=== PATIENT | male | born 1990 | race Caucasian/White ===

== ENCOUNTER 2021-10-08 19:26 | Emergency (ER) | payer BC ==
--- NOTE | 2021-10-08 21:14 | RAD REPORT ---
EXAM DESCRIPTION: RAD - Chest Single View - 10/08/2021 9:05 pm CLINICAL HISTORY: CHEST PAIN Chest pain. COMPARISON: No comparisons FINDINGS: Portable technique limits examination quality. The lungs are grossly clear. The heart is normal in size. No displaced fractures. IMPRESSION: No acute intrathoracic process suspected.
[2021-10-08] MEDS ORDERED: ASPIRIN 81 MG CHEWABLE TABLET ONE (21:55)
[2021-10-08 22:41] LABS: Absolute Lymphocytes (CBC) 2.6 K/uL (0.7-4.9); Hematocrit 44.7 % (39.6-49.0); Lymphocytes % 26.5 % (15.3-44.8); MPV 8.4 fL (7.6-11.3); RBC Red Blood Cell Count 5.16 M/uL (4.33-5.43)
[2021-10-08 22:54] LABS: BUN Blood Urea Nitrogen 7 mg/dL (7-18); Bicarbonate 27 mmol/L (21-32); Glucose Level 113 mg/dL (74-106); Sodium Level 137 mmol/L (136-145); Troponin High Sensitivity 4.9 pg/mL (<58.9)
--- NOTE | 2021-10-08 23:26 | EDPHYS ---
Physician Documentation [facility] Name: Moose Kessler Age: 31 yrs Sex: Male : 1990 Arrival Date: 10/08/2021 Time: 19:31 Bed 5 Private MD: ED Physician Aaron Muniz HPI: 10/08 20:48 This 31 yrs old Male presents to ER via Ambulatory with complaints of CHEST DISCOMFOR, jr8 LIGHT HEADED. 20:48 The patient or guardian reports chest pain that is located primarily in the anterior jr8 chest wall, left. The pain does not radiate. Associated signs and symptoms: Pertinent positives: dizziness. The chest pain is described as a pressure. Duration: The patient or guardian reports multiple episodes, that are intermittent. Modifying factors: The symptoms are alleviated by nothing. the symptoms are aggravated by nothing. Severity of pain: At its worst the pain was mild in the emergency department the pain is unchanged. The patient has not experienced similar symptoms in the past. The patient has not recently seen a physician. Stated that the pain stated about 4 days ago but persists. Has not worsened . Historical: - Allergies: 20:24 No Known Allergies; al4 - Immunization history:: Adult Immunizations up to date, Client reports receiving the 2nd dose of the Covid vaccine, pfizer Flu vaccine is not up to date. - Social history:: Smoking status: Patient denies any tobacco usage or history of. ROS: 20:48 Eyes: Negative for injury, pain, redness, and discharge, ENT: Negative for injury, jr8 pain, and discharge, Neck: Negative for injury, pain, and swelling, Respiratory: Negative for shortness of breath, cough, wheezing, and pleuritic chest pain, Abdomen/GI: Negative for abdominal pain, nausea, vomiting, diarrhea, and constipation, Back: Negative for injury and pain, MS/Extremity: Negative for injury and deformity, Skin: Negative for injury, rash, and discoloration. 20:48 Cardiovascular: Positive for chest pain, Negative for edema, orthopnea, palpitations, paroxysmal nocturnal dyspnea. 20:48 Neuro: Positive for dizziness. Exam: 20:48 Constitutional: This is a well developed, well nourished patient who is awake, alert, jr8 and in no acute distress. Neck: Trachea midline, no thyromegaly or masses palpated, and no cervical lymphadenopathy. Supple, full range of motion without nuchal rigidity, or vertebral point tenderness. No Meningismus. Chest/axilla: Normal chest wall appearance and motion. Nontender with no deformity. No lesions are appreciated. Cardiovascular: Regular rate and rhythm with a normal S1 and S2. No gallops, murmurs, or rubs. Normal PMI, no JVD. No pulse deficits. Respiratory: Lungs have equal breath sounds bilaterally, clear to auscultation and percussion. No rales, rhonchi or wheezes noted. No increased work of breathing, no retractions or nasal flaring. Abdomen/GI: Soft, non-tender, with normal bowel sounds. No distension or tympany. No guarding or rebound. No evidence of tenderness throughout. Back: No spinal tenderness. No costovertebral tenderness. Full range of motion. Skin: Warm, dry with normal turgor. Normal color with no rashes, no lesions, and no evidence of cellulitis. MS/ Extremity: Pulses equal, no cyanosis. Neurovascular intact. Full, normal range of motion. Neuro: Awake and alert, GCS 15, oriented to person, place, time, and situation. Cranial nerves II-XII grossly intact. Motor strength 5/5 in all extremities. Sensory grossly intact. Vital Signs: 20:22 BP 138 / 85; Pulse 76; Resp 18; Temp 98.4; Pulse Ox 98% on R/A; Weight 99.79 kg; Height al4 5 ft. 8 in. (172.72 cm); Pain 0/10; 21:00 BP 127 / 97; Pulse 78; Resp 18 S; Pulse Ox 98% on R/A; al4 22:15 BP 126 / 84; Pulse 74; Resp 20 S; Pulse Ox 98% on R/A; al4 23:15 BP 127 / 86; Pulse 68; Resp 18; Pulse Ox 98% ; al4 20:22 Body Mass Index 33.45 (99.79 kg, 172.72 cm) al4 MDM: 20:16 Patient medically screened. augustin 23:25 Data reviewed: vital signs, nurses notes, lab test result(s), EKG, radiologic studies, jr8 plain films. Data interpreted: Pulse oximetry: on room air is 98 %. Interpretation: normal. Counseling: I had a detailed discussion with the patient and/or guardian regarding: the historical points, exam findings, and any diagnostic results supporting the discharge/admit diagnosis, lab results, radiology results, the need for outpatient follow up, a family practitioner, to return to the emergency department if symptoms worsen or persist or if there are any questions or concerns that arise at home. ED course: Patient chest pain-free and hemodynamically stable at this point. No acute findings on EKG, labs, or imaging. Recommended follow-up with primary care. If you worsen or have a change in symptoms come back for further evaluation. Patient good with this at this time will follow up.. 10/08 20:33 Order name: Basic Metabolic Panel; Complete Time: 23:25 [facility] 10/08 20:33 Order name: CBC with Diff; Complete Time: 22:45 [facility] 10/08 20:33 Order name: Troponin HS; Complete Time: 23:25 [facility] 10/08 20:33 Order name: XRAY Chest (1 view); Complete Time: 21:33 [facility] 10/08 20:33 Order name: EKG; Complete Time: 20:34 10/08 20:33 Order name: Cardiac monitoring; Complete Time: 22:18 10/08 20:33 Order name: EKG - Nurse/Tech; Complete Time: 22:18 [facility] 10/08 20:33 Order name: IV Saline Lock; Complete Time: 22:18 10/08 20:33 Order name: Labs collected and sent; Complete Time: 22:18 10/08 20:33 Order name: O2 Per Protocol; Complete Time: 22:18 [facility] 10/08 20:33 Order name: O2 Sat Monitoring; Complete Time: 22:18 Administered Medications: 22:00 Drug: Aspirin Chewable Tablet 324 mg Route: PO; al4 23:00 Follow up: Response: No adverse reaction al4 Disposition Summary: 10/08/21 23:26 Discharge Ordered Location: Home [facility] Problem: new jr8 Symptoms: have improved jr8 Condition: Stable jr8 Diagnosis - Chest pain, unspecified jr8 Followup: jr8 - With: Private Physician - When: 5 - 6 days - Reason: Recheck today's complaints, Continuance of care, Re-evaluation by your physician Discharge Instructions: - Discharge Summary Sheet jr8 - Nonspecific Chest Pain, Adult jr8 Forms: - Medication Reconciliation Form jr8 - Thank You Letter jr8 - Antibiotic Education jr8 - Prescription Opioid Use jr8 Addendum: 10/10/2021 06:38 Co-signature as Attending Physician, Aaron Muniz MD I agree with the assessment and c sanchez plan of care. Signatures: Dispatcher [employer] Aaron Herman MD MD cha Roszak, Josh, PA PA jr8 Josesito Alexander
--- NOTE | 2021-10-08 23:26 | ER ---
Nurse's Notes [facility] Name: Moose Kessler Age: 31 yrs Sex: Male : 1990 Arrival Date: 10/08/2021 Time: 19:31 Bed 5 Private MD: Diagnosis: Chest pain, unspecified Presentation: 10/08 20:22 Chief complaint: Patient states: chest discomfort x 4 days. dizziness that happened al4 this morning. patient states "I would not even call it pain, more like tightness". patient states his face felt "weird" at the same time as his dizzy spell this morning at work. Coronavirus screen: Vaccine status: Patient reports receiving the 2nd dose of the covid vaccine. pfizer. Ebola Screen: No symptoms or risks identified at this time. Initial Sepsis Screen: Does the patient meet any 2 criteria? No. Patient's initial sepsis screen is negative. Does the patient have a suspected source of infection? No. Patient's initial sepsis screen is negative. Risk Assessment: Do you want to hurt yourself or someone else? Patient reports no desire to harm self or others. Onset of symptoms was October 04, 2021. 20:22 Method Of Arrival: Ambulatory al4 20:22 Acuity: MONIKA 3 al4 Triage Assessment: 20:24 General: Appears in no apparent distress. comfortable, Behavior is calm, cooperative, al4 patient denies c/p, but states chest feels tight x 4 days with a dizzy spell that happened this morning. patient states that pain at its worst has been a 2/10. . Pain: Denies pain. Neuro: Level of Consciousness is awake, alert, obeys commands, Oriented to person, place, time, situation. Cardiovascular: Capillary refill < 3 seconds Patient's skin is warm and dry. Respiratory: Airway is patent Respiratory effort is unlabored, Respiratory pattern is regular. Musculoskeletal: Circulation, motion, and sensation intact. Historical: - Allergies: 20:24 No Known Allergies; al4 - Immunization history:: Adult Immunizations up to date, Client reports receiving the 2nd dose of the Covid vaccine, pfizer Flu vaccine is not up to date. - Social history:: Smoking status: Patient denies any tobacco usage or history of. Screenin:27 Abuse screen: Denies threats or abuse. Nutritional screening: No deficits noted. al4 Tuberculosis screening: No symptoms or risk factors identified. Fall Risk No fall in past 12 months (0 pts). No IV (0 pts). Ambulatory Aid- None/Bed Rest/Nurse Assist (0 pts). Gait- Normal/Bed Rest/Wheelchair (0 pts) Mental Status- Oriented to own ability (0 pts). Total Matute Fall Scale indicates No Risk (0-24 pts). Assessment: 20:30 Reassessment: see triage assessment. al4 21:00 Reassessment: Patient and/or family updated on plan of care and expected duration. Pain al4 level reassessed. Patient is alert, oriented x 3, equal unlabored respirations, skin warm/dry/pink. 22:20 Reassessment: Patient and/or family updated on plan of care and expected duration. Pain al4 level reassessed. Patient is alert, oriented x 3, equal unlabored respirations, skin warm/dry/pink. 23:00 Reassessment: Patient and/or family updated on plan of care and expected duration. Pain al4 level reassessed. Patient is alert, oriented x 3, equal unlabored respirations, skin warm/dry/pink. Vital Signs: 20:22 BP 138 / 85; Pulse 76; Resp 18; Temp 98.4; Pulse Ox 98% on R/A; Weight 99.79 kg; Height al4 5 ft. 8 in. (172.72 cm); Pain 0/10; 21:00 BP 127 / 97; Pulse 78; Resp 18 S; Pulse Ox 98% on R/A; al4 22:15 BP 126 / 84; Pulse 74; Resp 20 S; Pulse Ox 98% on R/A; al4 23:15 BP 127 / 86; Pulse 68; Resp 18; Pulse Ox 98% ; al4 20:22 Body Mass Index 33.45 (99.79 kg, 172.72 cm) al4 ED Course: 19:31 Patient arrived in ED. ag3 20:15 Hair Remy PA is PHCP. jr8 20:15 Aaron Muniz MD is Attending Physician. jr8 20:24 Triage completed. al4 20:24 Arm band placed on. al4 20:27 Bed in low position. al4 21:07 XRAY Chest (1 view) In Process Unspecified. EDMS 21:39 Josesito Alexander is Primary Nurse. al4 22:18 Basic Metabolic Panel Sent. al4 22:18 CBC with Diff Sent. al4 22:18 Troponin HS Sent. al4 22:18 Inserted saline lock: 20 gauge in left antecubital area, using aseptic technique. Blood al4 collected. 23:38 No provider procedures requiring assistance completed. IV discontinued, intact, al4 bleeding controlled, No redness/swelling at site. Pressure dressing applied. Administered Medications: 22:00 Drug: Aspirin Chewable Tablet 324 mg Route: PO; al4 23:00 Follow up: Response: No adverse reaction al4 Outcome: 23:26 Discharge ordered by . ramiro 23:38 Discharged to home ambulatory, with significant other. al4 23:38 Condition: stable 23:38 Discharge instructions given to patient, significant other, Instructed on discharge instructions, follow up and referral plans. Demonstrated understanding of instructions, follow-up care. 23:38 Patient left the ED. al4 Signatures: Dispatcher [employer] EDMS Hair Remy PA PA jr8 Isabel Paiz ag3 Josesito Alexander al4 Corrections: (The following items were deleted from the chart) 22:20 22:18 Reassessment: see triage assessment al4 al4 22:22 20:24 General: Appears in no apparent distress. comfortable, Behavior is calm, al4 cooperative, patient denies c/p, but states chest feels tight x 4 days with a dizzy spell that happened this morning. al4
[2021-10-09 01:20] VITALS: TEMP 98.4; O2SAT 98
[2021-10-09 01:26] VITALS: BP 127/86
--- NOTE | 2021-10-09 07:53 | EKG ---
Test Date: 2021-10-08 Test Time: 22:03:06 Maintainability Engineer: MICHAEL MEASUREMENT RESULTS: Intervals: Rate: 73 TX: 148 QRSD: 96 QT: 374 QTc: 412 Wayne: P: 54 TX: 148 QRS: 61 T: 63 INTERPRETIVE STATEMENTS: Normal sinus rhythm Early repolarization Normal ECG No previous ECG available for comparison Electronically Signed On 10-09-21 07:52:29 CDT by Domenic Krishna
--- NOTE | 2021-10-09 07:53 | EKG ---
Test Date: 2021-10-08 Test Time: 22:03:44 Arts Administrator Or Manager: MICHAEL MEASUREMENT RESULTS: Intervals: Rate: 72 VT: 148 QRSD: 90 QT: 372 QTc: 407 Branch: P: 54 VT: 148 QRS: 63 T: 65 INTERPRETIVE STATEMENTS: Normal sinus rhythm ST elevation, probably due to early repolarization Borderline ECG Compared to ECG 10/08/2021 22:03:06 ST (T wave) deviation now present Electronically Signed On 10-09-21 07:52:28 CDT by Domenic Krishna
== END 2021-10-08 23:38 | disposition home or self-care (01) ==
LOC: ER 19:26
DX: R07.9 Chest pain, unspecified (principal)
CPT/HCPCS: 36415; 71045; 80048; 84484; 85025; 93005; 99284

== ENCOUNTER 2023-03-15 00:56 | Emergency (ER) | payer BC ==
[2023-03-15 02:18] LABS: Absolute Lymphocytes (CBC) 2.6 K/uL (0.7-4.9); Hematocrit 43.1 % (39.6-49.0); Lymphocytes % 30.3 % (15.3-44.8); MCV 84.9 fL (80-100); MPV 8.1 fL (7.6-11.3); Platelets 213 thou/uL (152-406); RBC Red Blood Cell Count 5.07 M/uL (4.33-5.43)
[2023-03-15] MEDS ORDERED: NA CHLORIDE 0.9% 1,000 ML ONE (02:33)
[2023-03-15] MEDS ORDERED: METOCLOPRAMIDE 10 MG/2mL INJ ONE (02:33)
[2023-03-15] MEDS ORDERED: DIPHENHYDRAMINE 50 MG/ML VIAL ONE (02:33)
[2023-03-15] MEDS ORDERED: KETOROLAC 30 MG/ML INJ ONE (02:33)
[2023-03-15 02:35] LABS: Albumin 4.2 g/dL (3.4-5.0); Bilirubin Total 0.5 mg/dL (0.2-1.0); Potassium 3.5 mEq/L (3.5-5.1); Protein, Total 7.7 g/dL (6.4-8.2)
--- NOTE | 2023-03-15 05:02 | EDPHYS ---
Physician Documentation [facility] Name: Moose Kessler Age: 32 yrs Sex: Male : 1990 Arrival Date: 03/15/2023 Time: 00:56 Bed 16 Private MD: ED Physician Aaron Muniz HPI: 03/15 02:08 This 32 yrs old Male presents to ER via Ambulatory with complaints of augustin Headache. 02:08 The patient complains of pain to the top of head, forehead, right hoahaoism, left hoahaoism august[place] and left frontal area. The patient describes the headache as aching. Onset: The symptoms/episode began/occurred 2 day(s) ago. Historical: - Allergies: :28 No Known Allergies; ha1 - PMHx: : ADHD; ha1 - Immunization history:: Adult Immunizations unknown. - Social history:: Smoking status: unknown. ROS: 02:09 Constitutional: Negative for fever, chills, and weight loss, Eyes: Negative for injury, august[place] pain, redness, and discharge, ENT: Negative for injury, pain, and discharge, Neck: Negative for injury, pain, and swelling, Cardiovascular: Negative for chest pain, palpitations, and edema, Respiratory: Negative for shortness of breath, cough, wheezing, and pleuritic chest pain, Abdomen/GI: Negative for abdominal pain, nausea, vomiting, diarrhea, and constipation, Back: Negative for injury and pain, : Negative for injury, bleeding, discharge, and swelling, MS/Extremity: Negative for injury and deformity, Skin: Negative for injury, rash, and discoloration, Psych: Negative for depression, anxiety, suicide ideation, homicidal ideation, and hallucinations, Allergy/Immunology: Negative for hives, rash, and allergies, Endocrine: Negative for neck swelling, polydipsia, polyuria, polyphagia, and marked weight changes, Hematologic/Lymphatic: Negative for swollen nodes, abnormal bleeding, and unusual bruising. 02:09 Neuro: Positive for headache, of the left frontal area and left hoahaoism. Exam: 02:09 Constitutional: This is a well developed, well nourished patient who is awake, alert, augustin and in no acute distress. Head/Face: Normocephalic, atraumatic. Eyes: Pupils equal round and reactive to light, extra-ocular motions intact. Lids and lashes normal. Conjunctiva and sclera are non-icteric and not injected. Cornea within normal limits. Periorbital areas with no swelling, redness, or edema. ENT: Nares patent. No nasal discharge, no septal abnormalities noted. Tympanic membranes are normal and external auditory canals are clear. Oropharynx with no redness, swelling, or masses, exudates, or evidence of obstruction, uvula midline. Mucous membranes moist. Neck: Trachea midline, no thyromegaly or masses palpated, and no cervical lymphadenopathy. Supple, full range of motion without nuchal rigidity, or vertebral point tenderness. No Meningismus. Chest/axilla: Normal chest wall appearance and motion. Nontender with no deformity. No lesions are appreciated. Cardiovascular: Regular rate and rhythm with a normal S1 and S2. No gallops, murmurs, or rubs. Normal PMI, no JVD. No pulse deficits. Respiratory: Lungs have equal breath sounds bilaterally, clear to auscultation and percussion. No rales, rhonchi or wheezes noted. No increased work of breathing, no retractions or nasal flaring. Abdomen/GI: Soft, non-tender, with normal bowel sounds. No distension or tympany. No guarding or rebound. No evidence of tenderness throughout. Back: No spinal tenderness. No costovertebral tenderness. Full range of motion. Skin: Warm, dry with normal turgor. Normal color with no rashes, no lesions, and no evidence of cellulitis. MS/ Extremity: Pulses equal, no cyanosis. Neurovascular intact. Full, normal range of motion. Neuro: Awake and alert, GCS 15, oriented to person, place, time, and situation. Cranial nerves II-XII grossly intact. Motor strength 5/5 in all extremities. Sensory grossly intact. Cerebellar exam normal. Normal gait. Psych: Awake, alert, with orientation to person, place and time. Behavior, mood, and affect are within normal limits. 02:09 Neck: ROM/movement: is normal, is supple, without pain, no range of motions limitations, no meningismus, no nuchal rigidity, negative Brudzinski's sign, negative Kernig's sign. 03:09 ECG was reviewed by the Attending Physician. [facility] Vital Signs: 01:00 BP 133 / 94; Pulse 67; Resp 18 S; Pulse Ox 100% on R/A; ha1 01:16 BP 166 / 110; Pulse 73; Resp 18 S; Temp 98.1; Pulse Ox 100% on R/A; Weight 97.52 kg; ha1 Height 5 ft. 8 in. ; 02:00 BP 149 / 104; Pulse 60; Resp 17 S; Pulse Ox 100% on R/A; ha1 03:00 BP 147 / 97; Pulse 62; Resp 17 S; Pulse Ox 100% on R/A; ha1 04:00 BP 139 / 89; Pulse 63; Resp 17 S; Pulse Ox 99% on R/A; ha1 05:00 BP 135 / 87; Pulse 61; Resp 17 S; Pulse Ox 98% on R/A; ha1 01:16 Body Mass Index 32.69 (97.52 kg, 172.72 cm) ha1 NIH Stroke Scale Scores: 02:09 NIHSS Score: 0 augustin Veronica Coma Score: 02:10 Eye Response: spontaneous(4). Motor Response: obeys commands(6). Verbal Response: augustin oriented(5). Total: 15. MDM: 01:40 Patient medically screened. [place] 02:10 Differential diagnosis: cluster headache, hypertensive headache, hyponatremia, [place] intracerebral hemorrhage, neoplasm, otitis, subdural hematoma, temporal arteritis, tension headache, trigeminal neuralgia. Data reviewed: vital signs, nurses notes, lab test result(s), EKG, radiologic studies, CT scan. Consideration of Admission/Observation Escalation of care including admission/observation considered. I considered the following discharge prescriptions or medication management in the emergency department Medications were administered in the Emergency Department. See MAR. Independent interpretation of the following test(s) in the Emergency Department EKG: See my EKG interpretation above. Test considered but Not performed: Ultrasound no carotid usg. Historians other than the Patient: Spouse/Significant Other: , informed. Care significantly affected by the following chronic conditions: Diabetes, ADHD. Counseling: I had a detailed discussion with the patient and/or guardian regarding the historical points, exam findings, and any diagnostic results supporting the discharge/admit diagnosis, lab results, radiology results, the need for outpatient follow up, for definitive care, a family practitioner, a neurologist. 03/15 01:42 Order name: CBC with Diff; Complete Time: 04:06 [place] 03/15 01:42 Order name: Comprehensive Metabolic Panel; Complete Time: 04:06 [facility] 03/15 02:07 Order name: Troponin HS; Complete Time: 04:06 [facility] 03/15 01:42 Order name: CT Head Brain wo Cont [facility] 03/15 02:09 Order name: CT Head Angio [facility] 03/15 02:09 Order name: CT Neck Angio [facility] 03/15 02:07 Order name: EKG; Complete Time: 02:08 [facility] 03/15 01:42 Order name: Oxygen: 2 liters; Complete Time: 02:50 [facility] 03/15 02:07 Order name: EKG - Nurse/Tech; Complete Time: 03:28 [facility] EC:09 Rate is 71 beats/min. Rhythm is regular. QRS Blue[place] is Normal. CT interval is normal. QRS august[place] interval is normal. QT interval is normal. No Q waves. T waves are Normal. No ST changes noted. Clinical impression: Normal ECG and No evidence of ischemia. Interpreted by me. Reviewed by me. Administered Medications: 02:15 Drug: NS 0.9% IV 500 ml Route: IV; Rate: bolus; Site: right antecubital; ha1 04:00 Follow up: Response: No adverse reaction; IV Status: Completed infusion; IV Intake: ha1 500ml 02:15 Drug: NS 0.9% IV 500 ml Route: IV; Rate: bolus; Site: right antecubital; ha1 04:00 Follow up: Response: No adverse reaction; IV Status: Completed infusion; IV Intake: ha1 500ml 02:16 Drug: diphenhydrAMINE IVP 50 mg Route: IVP; Site: right antecubital; ha1 02:50 Follow up: Response: No adverse reaction ha1 02:20 Drug: metoCLOPramide IVP 10 mg Route: IVP; Site: right antecubital; ha1 02:50 Follow up: Response: No adverse reaction ha1 02:22 Drug: Ketorolac IVP 30 mg Route: IVP; Site: right antecubital; ha1 02:50 Follow up: Response: No adverse reaction; Pain is decreased ha1 Disposition Summary: 03/15/23 05:01 Discharge Ordered Location: Home [place] Problem: new [place]ust[place] Symptoms: have improved [place] Condition: Stable [place] Diagnosis - Headache aug[place] - Type 2 diabetes mellitus with hyperglycemia [place] Followup: [place] - With: Private Physician - When: 2 - 3 days - Reason: Recheck today's complaints, Continuance of care, Re-evaluation by your physician Followup: [facility] - With: - When: 2 - 3 days - Reason: Recheck today's complaints, Continuance of care, Re-evaluation by your physician Discharge Instructions: - Discharge Summary Sheet aug[place] - Type 2 Diabetes Mellitus, Diagnosis, Adult aug[place] - General Headache Without Cause [place] - Hyperglycemia [place] - Diabetes Mellitus and Nutrition, Adult [place] - General Headache Without Cause, [id number] [facility] Forms: - Medication Reconciliation Form [facility] - Thank You Letter [facility] - Antibiotic Education aug[place] - Prescription Opioid Use [facility] - Patient Portal Instructions [facility] - Leadership Thank You Letter [facility] Prescriptions: - Fioricet with Codeine 23-547-07-30 mg Oral capsule - take 2 capsule by ORAL route every 4 hours as needed for pain; do not exceed 6 august[place] caps per day; 20 capsule; Refills: 0, Product Selection Permitted - ondansetron 4 mg Oral Tablet,disintegrating - take 1 tablet by ORAL route every 6-8 hours for 24 hours; 20 tablet; Refills: augustin 0, Product Selection Permitted NIH Stroke Scale - NIH Stroke Score Date: 03/15/2023 Time: 02:09 Total Score = 0 10. Dysarthria (speech clarity - read or repeat words) - 0(Normal) 11. Extinction and Inattention (visual/tactile/auditory/spatial/personal) - 0(No abnormality) 1a. Level of Consciousness (LOC) - 0(Alert) 1b. Level of Consciousness (LOC) (Month \T\ Age) - 0(Both) 1c. LOC Commands (Open \T\ Closes Eyes/Strip Mine Supervisor) - 0(Both) 2. Best Gaze (Lateral Gaze Paresis) - 0(Normal) 3. Visual Field Loss - 0(No visual loss) 4. Facial Palsy - 0(Normal) 5a. Left Arm: Motor (10-second hold) - 0(No drift) 5b. Right Arm: Motor (10-second hold) - 0(No drift) 6a. Left Leg: Motor (5-second hold - always test supine) - 0(No drift) 6b. Right Leg: Motor (5-second hold - always test supine) - 0(No drift) 7. Limb Ataxia (finger/nose \T\ heel/flores - test with eyes open) - 0(Absent) 8. Sensory Loss (pinprick arms/legs/face) - 0(Normal) 9. Best Language: Aphasia (description/naming/reading) - 0(No aphasia) Initials: [facility] Signatures: Dispatcher [employer] Aaron Herman MD MD cha Ayala, Heidy, RN RN ha1
--- NOTE | 2023-03-15 05:02 | ER ---
Nurse's Notes [facility] Name: Moose Kessler Age: 32 yrs Sex: Male : 1990 Arrival Date: 03/15/2023 Time: 00:56 Bed 16 Private MD: Diagnosis: Headache;Type 2 diabetes mellitus with hyperglycemia Presentation: 03/15 01:16 Chief complaint: Patient states: I have this weird headache on my left side of my head. ha1 it feels like a heavy pressure. 01:16 Coronavirus screen: Vaccine status: Patient reports receiving the 2nd dose of the covid ha1 vaccine. [employer]. Ebola Screen: No symptoms or risks identified at this time. Initial Sepsis Screen: Does the patient meet any 2 criteria? No. Patient's initial sepsis screen is negative. Does the patient have a suspected source of infection? No. Patient's initial sepsis screen is negative. Risk Assessment: Do you want to hurt yourself or someone else? Patient reports no desire to harm self or others. Onset of symptoms was March 15, 2023. 01:16 Method Of Arrival: Ambulatory ha1 01:16 Acuity: MONIKA 3 ha1 Triage Assessment: 01:16 Headache History: The patient has had previous headaches and this one is similar to ha1 previous episodes. General: Appears uncomfortable, Behavior is cooperative. Pain: Complains of pain in left frontal area and left alevism Pain does not radiate. Pain currently is 8 out of 10 on a pain scale. Quality of pain is described as pressure, Pain began gradually, Also complains of nausea. Neuro: Level of Consciousness is awake, alert, obeys commands, Oriented to person, place, time, situation. Cardiovascular: Patient's skin is warm and dry. Respiratory: Airway is patent Respiratory effort is even, unlabored, Respiratory pattern is regular, symmetrical. Musculoskeletal: Circulation, motion, and sensation intact. Range of motion: intact in all extremities. Historical: - Allergies: : No Known Allergies; ha1 - PMHx: : ADHD; ha1 - Immunization history:: Adult Immunizations unknown. - Social history:: Smoking status: unknown. Screenin:16 [facility] ED Fall Risk Assessment (Adult) History of falling in the last 3 months, ha1 including since admission No falls in past 3 months (0 pts) Confusion or Disorientation No (0 pts) Intoxicated or Sedated No (0 pts) Impaired Gait No (0 pts) Mobility Assist Device Used No (0 pt) Altered Elimination No (0 pt) Score/Fall Risk Level 0 - 2 = Low Risk Oriented to surroundings, Maintained a safe environment, Educated pt \T\ family on fall prevention, incl call for assistance when getting out of bed. Abuse screen: Denies threats or abuse. Denies injuries from another. Nutritional screening: No deficits noted. Tuberculosis screening: No symptoms or risk factors identified. Assessment: 01:16 Reassessment: see triage assessment. ha1 02:53 Reassessment: Patient and/or family updated on plan of care and expected duration. Pain ha1 level reassessed. Patient is alert, oriented x 3, equal unlabored respirations, skin warm/dry/pink. Patient states feeling better. Patient states symptoms have improved. 04:00 Reassessment: Patient and/or family updated on plan of care and expected duration. Pain ha1 level reassessed. Patient is alert, oriented x 3, equal unlabored respirations, skin warm/dry/pink. Patient denies pain at this time. 05:00 Reassessment: Patient and/or family updated on plan of care and expected duration. Pain ha1 level reassessed. Patient is alert, oriented x 3, equal unlabored respirations, skin warm/dry/pink. Patient denies pain at this time. Patient states feeling better. Patient states symptoms have improved. Vital Signs: 01:00 BP 133 / 94; Pulse 67; Resp 18 S; Pulse Ox 100% on R/A; ha1 01:16 BP 166 / 110; Pulse 73; Resp 18 S; Temp 98.1; Pulse Ox 100% on R/A; Weight 97.52 kg; ha1 Height 5 ft. 8 in. ; 02:00 BP 149 / 104; Pulse 60; Resp 17 S; Pulse Ox 100% on R/A; ha1 03:00 BP 147 / 97; Pulse 62; Resp 17 S; Pulse Ox 100% on R/A; ha1 04:00 BP 139 / 89; Pulse 63; Resp 17 S; Pulse Ox 99% on R/A; ha1 05:00 BP 135 / 87; Pulse 61; Resp 17 S; Pulse Ox 98% on R/A; ha1 01:16 Body Mass Index 32.69 (97.52 kg, 172.72 cm) ha1 [place] Coma Score: 02:10 Eye Response: spontaneous(4). Motor Response: obeys commands(6). Verbal Response: [place] oriented(5). Total: 15. NIH Stroke Scale Scores: 02:09 NIHSS Score: 0 [facility] ED Course: 00:57 Patient arrived in ED. kj1 01:15 Inserted saline lock: 22 gauge in right antecubital area, using aseptic technique. ha1 Blood collected. 01:16 Arm band placed on right wrist. ha1 01:16 Patient has correct armband on for positive identification. Placed in gown. Bed in low ha1 position. Call light in reach. Side rails up X 1. Adult w/ patient. 01:28 Triage completed. ha1 01:39 Aaron Muniz MD is Attending Physician. augustin 01:51 Gabriella Graves RN is Primary Nurse. ha1 02:51 Troponin HS Sent. ha1 03:17 CT Head Brain wo Cont In Process Unspecified. EDMS 03:17 CT Head Angio In Process Unspecified. EDMS 03:18 CT Neck Angio In Process Unspecified. EDMS 05:01 Roman Guevara MD is Referral Physician. augustin 05:38 No provider procedures requiring assistance completed. IV discontinued, intact, ha1 bleeding controlled, No redness/swelling at site. Pressure dressing applied. 05:40 Provided Education on: follow up . ha1 Administered Medications: 02:15 Drug: NS 0.9% IV 500 ml Route: IV; Rate: bolus; Site: right antecubital; ha1 04:00 Follow up: Response: No adverse reaction; IV Status: Completed infusion; IV Intake: ha1 500ml 02:15 Drug: NS 0.9% IV 500 ml Route: IV; Rate: bolus; Site: right antecubital; ha1 04:00 Follow up: Response: No adverse reaction; IV Status: Completed infusion; IV Intake: ha1 500ml 02:16 Drug: diphenhydrAMINE IVP 50 mg Route: IVP; Site: right antecubital; ha1 02:50 Follow up: Response: No adverse reaction ha1 02:20 Drug: metoCLOPramide IVP 10 mg Route: IVP; Site: right antecubital; ha1 02:50 Follow up: Response: No adverse reaction ha1 02:22 Drug: Ketorolac IVP 30 mg Route: IVP; Site: right antecubital; ha1 02:50 Follow up: Response: No adverse reaction; Pain is decreased ha1 Medication: 05:42 VIS not applicable for this client. ha1 Intake: 04:00 IV: 500ml; Total: 500ml. ha1 04:00 IV: 500ml; Total: 1000ml. ha1 Outcome: 05:01 Discharge ordered by . augustin 05:42 Patient left the ED. ha1 05:42 Condition: stable ha1 05:42 Discharged to home ambulatory, with family. ha1 05:42 Discharge instructions given to patient, family, Instructed on discharge instructions, follow up and referral plans. medication usage, Demonstrated understanding of instructions, follow-up care, medications, Prescriptions given X 2. NIH Stroke Scale - NIH Stroke Score Date: 03/15/2023 Time: 02:09 Total Score = 0 10. Dysarthria (speech clarity - read or repeat words) - 0(Normal) 11. Extinction and Inattention (visual/tactile/auditory/spatial/personal) - 0(No abnormality) 1a. Level of Consciousness (LOC) - 0(Alert) 1b. Level of Consciousness (LOC) (Month \T\ Age) - 0(Both) 1c. LOC Commands (Open \T\ Closes Eyes/Perinatology Physician) - 0(Both) 2. Best Gaze (Lateral Gaze Paresis) - 0(Normal) 3. Visual Field Loss - 0(No visual loss) 4. Facial Palsy - 0(Normal) 5a. Left Arm: Motor (10-second hold) - 0(No drift) 5b. Right Arm: Motor (10-second hold) - 0(No drift) 6a. Left Leg: Motor (5-second hold - always test supine) - 0(No drift) 6b. Right Leg: Motor (5-second hold - always test supine) - 0(No drift) 7. Limb Ataxia (finger/nose \T\ heel/flores - test with eyes open) - 0(Absent) 8. Sensory Loss (pinprick arms/legs/face) - 0(Normal) 9. Best Language: Aphasia (description/naming/reading) - 0(No aphasia) Initials: augustin Signatures: Dispatcher [employer] EDAaron Bethea MD MD cha Jackson, Kandis kj1 Gabriella Graves, RN RN ha1
[2023-03-15 05:47] VITALS: TEMP 98.1
[2023-03-15 05:52] VITALS: BP 135/87; O2SAT 98
--- NOTE | 2023-03-15 16:59 | RAD REPORT ---
EXAM DESCRIPTION: CT - Head Brain Wo Cont - 03/15/2023 6:55 am CLINICAL HISTORY: 32 years Male HEADACHE. TECHNIQUE: Following dynamic intravenous nonionic contrast infusion, multiple axial helical CT image s with multiplanar reconstructions were obtained through the head and neck. Coronal and sagittal MIP images were performed. The CT study is performed according to ALARA (as low as reasonably achievable) or ALARA/IMAGE GENTLY, with automatic adjustment of mA and/or kV according to patient size. Performed on: 03/15/2023 at 2:43 AM COMPARISON: None FINDINGS: CTA NECK: AORTA: The aortic arch is only partially imaged. The left subclavian artery, left common carotid artery an d innominate artery are patent. The origins of these vessels are incompletely imaged on this study. VERTEBRAL ARTERIES: The LEFT vertebral artery is normal in caliber and contour without evidence of dissection or signific ant stenosis. The RIGHT vertebral artery is normal in caliber and contour without evidence of dissection or signifi cant stenosis. CAROTID ARTERIES: The LEFT common carotid artery is unremarkable. There is no evidence of stenosis, dissection or occlu sue The carotid bulb demonstrates no significant plaque. The LEFT internal carotid artery is alejandro l in caliber and contour without evidence of significant stenosis, dissection or occlusion. The LEFT external carotid artery is unremarkable. The RIGHT common carotid artery is unremarkable. There is no evidence of stenosis, dissection or occl usion. The carotid bulb demonstrates no significant plaque. The RIGHT internal carotid artery is un remarkable. There is no evidence of stenosis, dissection or occlusion. The RIGHT external carotid art [place] is unremarkable. CTA HEAD: LEFT: INTERNAL CAROTID ARTERY: The distal internal carotid artery is unremarkable. ANTERIOR CEREBRAL ARTERY: The A1 segment is normal in caliber and contour. The A2 segment is normal i n caliber and contour. The region of the anterior communicating artery is unremarkable. MIDDLE CEREBRAL ARTERY: The M1 segment is normal in caliber and contour. The M2 branches are normal i n caliber and contour. POSTERIOR CEREBRAL ARTERY: The P1 segment is normal in caliber and contour. The P2 segment is normal in caliber and contour. The left posterior communicating artery is hypoplastic. VERTEBRAL ARTERY: The intradural left vertebral artery is normal in caliber and contour. RIGHT: INTERNAL CAROTID ARTERY: The distal internal carotid artery is unremarkable. ANTERIOR CEREBRAL ARTERY: The A1 segment is normal in caliber and contour. The A2 segment is normal i n caliber and contour. MIDDLE CEREBRAL ARTERY: The M1 segment is normal in caliber and contour. The M2 branches are normal i n caliber and contour. POSTERIOR CEREBRAL ARTERY: The P1 segment is normal in caliber and contour. The P2 segment is normal in caliber and contour. The right posterior communicating artery is hypoplastic. VERTEBRAL ARTERY: The intradural right vertebral artery is normal in caliber and contour. BASILAR ARTERY: The basilar artery is normal in caliber and contour. DURAL VENOUS SINUSES: The dural venous sinuses are patent. NON-ANGIOGRAPHIC FINDINGS: The lung apices are clear. The thyroid gland is normal in size and configuration. The soft tissues of the neck are unremarkable. No acute osseous abnormalities are identified. There is an impacted poste rior left mandibular molar. The paranasal sinuses are grossly clear. 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 The mastoid air cells and middle ear cavities are clear. The orbital contents are unremar kable. There are no definite focal pathologic areas of enhancement within the brain parenchyma. IMPRESSION: CTA NECK: 1. Normal CTA of the neck. There is no evidence of stenosis as per the NASCET criteria. 2. The aortic arch and origins of the great vessels are incompletely imaged on this study. CTA HEAD: 1. Normal intracranial CTA. There is no evidence of large vessel occlusion, significant stenosis, a neurysm or other vascular malformation. 2. Impacted posterior left mandibular molar. Electronically signed by: Emy Dyer DO 03/15/2023 5:20 AM CDT Due to temporary technical issues with the PACS/Fluency reporting system, reports are being signed by the in house radiologists without review as a courtesy to insure prompt reporting. The interpreting radiologist is fully responsible for the content of the report.
--- NOTE | 2023-03-17 16:54 | EKG ---
Test Date: 2023-03-15 Test Time: 03:05:22 Card Hand: VICKY MEASUREMENT RESULTS: Intervals: Rate: 71 MN: 154 QRSD: 104 QT: 412 QTc: 447 [place]: P: 67 MN: 154 QRS: 74 T: 57 INTERPRETIVE STATEMENTS: Normal sinus rhythm Normal ECG Compared to ECG 10/08/2021 22:03:44 ST (T wave) deviation no longer present Early repolarization no longer present Electronically Signed On 03-17-23 16:46:22 CDT by Ottoniel Kebede
== END 2023-03-15 05:42 | disposition home or self-care (01) ==
LOC: ER 00:56
DX: E11.65 Type 2 diabetes mellitus with hyperglycemia (principal)
CPT/HCPCS: 96361; 93005; 85025; 36415; 84484; 80053; 70450; 70496; 70498; 96375; 96374; 99284; Q9967; J2765; J1200; J7030